=== PATIENT | male | born 1985 | race Caucasian/White ===

== ENCOUNTER 2019-10-22 12:23 | Emergency (ER) | payer OTHER ==
[~2019-10-22] VITALS: Ht 175.3 cm; Wt 68.2 kg
[2019-10-22] MEDS ORDERED: IBUP-2071 PO (12:25)
[2019-10-22] MEDS ORDERED: METHOCARBAMOL 500 MG TABLET PO ONE (13:15)
[2019-10-22] MEDS ORDERED: LIDOCAINE 5% TRANSDERMAL PATCH TD ONE (13:15)
[2019-10-22] MEDS ORDERED: KETOROLAC TROMETHAMINE 30 MG/ML VIAL IM ONE (13:15)
[2019-10-22 14:52] VITALS: BP 137/87
== END 2019-10-22 15:05 | disposition home or self-care (01) ==
LOC: EMS 12:38
DX: M54.5 Low back pain (principal); R03.0 Elevated blood-pressure reading, without diagnosis of hypertension
CPT/HCPCS: 96372; 99283; J1885